=== PATIENT | male | born 1995 | race Caucasian/White ===

== ENCOUNTER 2022-02-07 05:41 | Emergency (ER) | payer BC, SELFPAY ==
[2022-02-07 05:42] VITALS: BP 120/75; PULSE 121; RESP 18; TEMP 35.9; O2SAT 98; BMI 29.2
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
[2022-02-07] MEDS: Diphth,Pertuss(Acell),Tet Vac 0.5 ML Vial IM (05:56)
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
[2022-02-07] MEDS: oxyCODONE 5 MG Tablet PO (06:18)
== END 2022-02-07 06:56 | disposition home or self-care (01) ==
PROVIDERS: Emergency Provider Emergency Medicine; Visit Provider Emergency Medicine
DX: S52.572A Other intraarticular fracture of lower end of left radius, initial encounter for closed fracture (principal); S52.612A Displaced fracture of left ulna styloid process, initial encounter for closed fracture; S00.81XA Abrasion of other part of head, initial encounter; S80.212A Abrasion, left knee, initial encounter; V86.69XA Passenger of other special all-terrain or other off-road motor vehicle injured in nontraffic accident, initial encounter; Z23 Encounter for immunization
CPT/HCPCS: 29125; 73110; 90715; 99283

== ENCOUNTER 2023-03-06 11:39 | Emergency (ER) | payer BC, SELFPAY ==
[2023-03-06 11:39] VITALS: BP 140/102; PULSE 80; RESP 16; TEMP 36.6; O2SAT 99; BMI 31.5
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
[2023-03-06] MEDS: HYDROcodone Bitartrate/Apap 5/325 Tablet PO (11:55)
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
[2023-03-06] MEDS: Lidocaine 1% (20 ml mdv) 20 ML Vial INFILT (12:34)
== END 2023-03-06 13:40 | disposition home or self-care (01) ==
PROVIDERS: Emergency Provider Emergency Medicine; Visit Provider Emergency Medicine
DX: S67.193A Crushing injury of left middle finger, initial encounter (principal); S67.191A Crushing injury of left index finger, initial encounter; S61.412A Laceration without foreign body of left hand, initial encounter; S61.213A Laceration without foreign body of left middle finger without damage to nail, initial encounter; S61.211A Laceration without foreign body of left index finger without damage to nail, initial encounter; W23.0XXA Caught, crushed, jammed, or pinched between moving objects, initial encounter; W30.89XA Contact with other specified agricultural machinery, initial encounter
CPT/HCPCS: 12002; 73130; 99283